=== PATIENT | female | born 1970 | race Caucasian/White ===

== ENCOUNTER 2020-07-26 13:35 | Inpatient (IN) | payer OTHER ==
[2020-07-26] MEDS ORDERED: SODIUM CHLORIDE 0.9% 500 ML INFUS.BAG IV ONE (13:56)
[2020-07-26] MEDS ORDERED: FAMOTIDINE 20 MG/50 ML IVPB 20 MG/50 ML MG IVPB ONE ×2 (13:56→15:38)
[2020-07-26] MEDS ORDERED: MAG HYDROX/AL HYDROX/SIMETH 30 ML UNIT-DOSE CUP PO ONE (13:56)
[2020-07-26] MEDS ORDERED: DEXAMETHASONE SOD PHOSPHATE 4 MG/1 ML VIAL IVPUSH ONE (14:38)
[2020-07-26 15:15] LABS: BASO % 0.1 % (0-2.0); HEMATOCRIT 36.6 % (32.4-45.2); HEMOGLOBIN 12.1 GM/dL (10.7-15.3); MCH 28.6 pg (25.7-33.7); MEAN CELL VOLUME 86.7 fl (80-96); MEAN PLT VOLUME 8.5 fl (7.5-11.1); MONO % 2.4 % (3.8-10.2); NEUT % 89.5 % (42.8-82.8); PLATELET COUNT 269 K/MM3 (134-434); RBC 4.22 M/mm3 (3.60-5.2); RDW 13.1 % (11.6-15.6); WHITE BLOOD COUNT 6.9 K/mm3 (4.0-10.0)
[2020-07-26 15:22] LABS: CHLORIDE 103 mmol/L (98-107); POTASSIUM 3.5 mmol/L (3.5-5.1)
[2020-07-26 15:25] LABS: ALBUMIN 3.4 g/dl (3.4-5.0); CALCIUM 8.4 mg/dL (8.5-10.1); CO2 26 mmol/L (21-32); GLUCOSE,RANDOM 120 mg/dL (74-106)
[2020-07-26 15:27] LABS: INR 1.18 (0.83-1.09); PROTHROMBIN TIME (PATIENT) 14.2 SEC (9.7-13.0)
[2020-07-26 15:28] LABS: BILIRUBIN,DIRECT 0.2 mg/dL (0.0-0.2); CREATININE 0.6 mg/dL (0.55-1.3); SGOT/AST 37 U/L (15-37); SGPT/ALT 31 U/L (13-61)
[2020-07-26 15:29] LABS: ACTIVATED PTT 31.5 SECONDS (25.2-36.5)
[2020-07-26 15:30] LABS: BILIRUBIN,TOTAL 0.7 mg/dL (0.2-1); TOT PROT 7.7 g/dl (6.4-8.2)
[2020-07-26 15:31] LABS: ALK PHOS 52 U/L (45-117)
[2020-07-26 15:33] LABS: LDH 334 U/L (84-246)
[2020-07-26] MEDS ORDERED: DEXAMETHASONE SOD PHOSPHATE 4 MG/1 ML VIAL ONE (15:37)
[2020-07-26] MEDS ORDERED: MAG HYDROX/AL HYDROX/SIMETH 30 ML UNIT-DOSE CUP ONE (15:38)
[2020-07-26 15:51] LABS: ANION GAP 6 MMOL/L (8-16); SODIUM 135 mmol/L (136-145)
[2020-07-26] MEDS ORDERED: IBUPROFEN 400 MG TABLET (FP) PO ONE ×2 (16:24→17:20)
[2020-07-26] MEDS ORDERED: AZITHROMYCIN IVPB 500 MG in DEXTROSE 5%-WATER - 250 ML IVPB ONE (16:30)
[2020-07-26] MEDS ORDERED: SODIUM CHLORIDE 1,000 ML IV SCH (16:30)
[2020-07-26] MEDS ORDERED: ALBUTEROL SO4 HFA INHALER IH PRN (16:33)
[2020-07-26] MEDS ORDERED: CEFTRIAXONE 1 GM/50 ML BAG ONE (17:21)
[2020-07-26] MEDS ORDERED: AZITHROMYCIN IVPB 500 MG/250 ML BAG IVPB ONE (17:21)
[2020-07-26] MEDS: CEFTRIAXONE 1 GM in DEXTROSE 5%-WATER - 50 ML IVPB SCH (17:35)
[2020-07-26 20:58] LABS: EPI CELLS 11 /uL (0-25.1); HYALINE CASTS 3 /uL (0-3.1); URINE APPEARANCE CLEAR; URINE BACTERIA 61 /uL (0-1359); URINE BILIRUBIN NEGATIVE (NEGATIVE); URINE COLOR YELLOW; URINE GLUCOSE (UA) 1+ (NEGATIVE); URINE KETONE 1+ (NEGATIVE); URINE LEUK ESTERASE NEGATIVE (NEGATIVE); URINE NITRITE NEGATIVE (NEGATIVE); URINE PROTEIN 1+ (NEGATIVE); URINE RBC 17 /uL (0-23.9); URINE UROBILINOGEN 0.2 mg/dL (0.2-1.0); URINE WBC 4 /uL (0-25.8)
[2020-07-26] MEDS ORDERED: ASCORBIC ACID 500 MG TABLET (FP) ONE (21:05)
[2020-07-26] MEDS ORDERED: ENOXAPARIN NA (PORCINE) 100 MG/1 ML DISP.SYRIN SQ ONE (21:06)
[2020-07-26] MEDS: ENOXAPARIN NA (PORCINE) 80 MG/0.8 ML DISP.SYRIN SQ SCH (21:12)
[2020-07-26] MEDS: ASCORBIC ACID 500 MG TABLET (FP) PO SCH (21:13)
[2020-07-26] MEDS ORDERED: guaiFENesin 200 MG/10 ML 10 ML UNIT-DOSE CUPS PO ONE (23:14)
[2020-07-26] MEDS ORDERED: MELATONIN 5 MG TABLETS PO ONE (23:15)
[2020-07-27] MEDS: ACETAMINOPHEN 325 MG TABLET (FP) PO PRN ×3 (01:34→23:00)
[2020-07-27 08:22] LABS: HEMATOCRIT 33.6 % (32.4-45.2); HEMOGLOBIN 11.1 GM/dL (10.7-15.3); LYMPH % 6.4 % (8-40); MCH 28.4 pg (25.7-33.7); MCHC 32.9 g/dl (32.0-36.0); MEAN CELL VOLUME 86.3 fl (80-96); MEAN PLT VOLUME 8.7 fl (7.5-11.1); MONO % 3.4 % (3.8-10.2); NEUT % 90.2 % (42.8-82.8); PLATELET COUNT 311 K/MM3 (134-434); RBC 3.89 M/mm3 (3.60-5.2); RDW 13.2 % (11.6-15.6); WHITE BLOOD COUNT 9.2 K/mm3 (4.0-10.0)
[2020-07-27 08:40] LABS: POTASSIUM 3.8 mmol/L (3.5-5.1)
[2020-07-27 08:42] LABS: BLOOD UREA NITROGEN 10.7 mg/dL (7-18); CALCIUM 8.5 mg/dL (8.5-10.1); MAGNESIUM 2.3 mg/dL (1.8-2.4)
[2020-07-27 08:44] LABS: ALBUMIN 3.1 g/dl (3.4-5.0)
[2020-07-27 08:46] LABS: BILIRUBIN,TOTAL 0.5 mg/dL (0.2-1); CREATININE 0.6 mg/dL (0.55-1.3); PHOSPHOROUS 1.7 mg/dL (2.5-4.9); TOT PROT 7.1 g/dl (6.4-8.2)
[2020-07-27] MEDS ORDERED: ENOXAPARIN NA (PORCINE) 40 MG/0.4 ML DISP.SYRIN SQ SCH (10:00)
[2020-07-27] MEDS ORDERED: cefTRIAXone SODIUM 1 GM VIAL ONE (10:08)
[2020-07-27] MEDS ORDERED: DEXTROSE 5%-WATER - 50 ML IVPB ONE (10:09)
[2020-07-27] MEDS ORDERED: PT OWN MED DRAWER 7, Y5N ONE ×2 (10:44→14:32)
[2020-07-27] MEDS: DEXAMETHASONE 4 MG TABLET (FP) PO SCH (10:53)
[2020-07-27] MEDS: CEFTRIAXONE 1 GM in DEXTROSE 5%-WATER - 50 ML IVPB SCH (10:53)
[2020-07-27] MEDS: ENOXAPARIN NA (PORCINE) 80 MG/0.8 ML DISP.SYRIN SQ SCH (10:53)
[2020-07-27] MEDS: ASCORBIC ACID 500 MG TABLET (FP) PO SCH ×2 (10:54→21:18)
[2020-07-27] MEDS: CHOLECALCIFEROL (VIT D3) 5000 UNITS (125 MCG) CAP PO SCH (12:16)
[2020-07-27] MEDS: AZITHROMYCIN IVPB 250 MG in DEXTROSE 5%-WATER - 250 ML IVPB SCH (12:46)
[2020-07-27] MEDS ORDERED: REMDESIVIR 200 MG in SODIUM CHLORIDE 210 ML IVPB ONE (13:00)
[2020-07-27] MEDS ORDERED: NAPH,MB-DB/K PH,MBDB POWDER PACKET PO ONE (13:30)
[2020-07-27] MEDS ORDERED: ACETAMINOPHEN/CAFFEINE/BUTALBITAL 1 TAB PO ONE (14:36)
[2020-07-28] MEDS: ACETAMINOPHEN 325 MG TABLET (FP) PO PRN ×2 (02:58→21:01)
[2020-07-28 08:39] LABS: BASO % 0.1 % (0-2.0); HEMATOCRIT 32.5 % (32.4-45.2); HEMOGLOBIN 10.7 GM/dL (10.7-15.3); LYMPH % 10.4 % (8-40); MCH 28.7 pg (25.7-33.7); MCHC 32.9 g/dl (32.0-36.0); MEAN CELL VOLUME 87.2 fl (80-96); MEAN PLT VOLUME 8.6 fl (7.5-11.1); MONO % 4.2 % (3.8-10.2); NEUT % 85.3 % (42.8-82.8); PLATELET COUNT 363 K/MM3 (134-434); RBC 3.73 M/mm3 (3.60-5.2); RDW 13.3 % (11.6-15.6); WHITE BLOOD COUNT 10.6 K/mm3 (4.0-10.0)
[2020-07-28 08:54] LABS: POTASSIUM 3.5 mmol/L (3.5-5.1)
[2020-07-28 08:59] LABS: BLOOD UREA NITROGEN 15.4 mg/dL (7-18); CALCIUM 8.2 mg/dL (8.5-10.1)
[2020-07-28 09:00] LABS: MAGNESIUM 2.3 mg/dL (1.8-2.4)
[2020-07-28 09:02] LABS: CREATININE 0.6 mg/dL (0.55-1.3)
[2020-07-28] MEDS ORDERED: DEXTROSE 5%-WATER - 50 ML IVPB ONE (09:02)
[2020-07-28] MEDS ORDERED: cefTRIAXone SODIUM 1 GM VIAL ONE (09:02)
[2020-07-28 09:04] LABS: BILIRUBIN,TOTAL 0.8 mg/dL (0.2-1); PHOSPHOROUS 2.9 mg/dL (2.5-4.9); TOT PROT 6.9 g/dl (6.4-8.2)
[2020-07-28] MEDS ORDERED: ENOXAPARIN NA (PORCINE) 40 MG/0.4 ML DISP.SYRIN SQ SCH (10:00)
[2020-07-28] MEDS: CEFTRIAXONE 1 GM in DEXTROSE 5%-WATER - 50 ML IVPB SCH (10:30)
[2020-07-28] MEDS: AZITHROMYCIN IVPB 250 MG in DEXTROSE 5%-WATER - 250 ML IVPB SCH (10:30)
[2020-07-28] MEDS: ASCORBIC ACID 500 MG TABLET (FP) PO SCH ×2 (10:31→21:01)
[2020-07-28] MEDS: CHOLECALCIFEROL (VIT D3) 5000 UNITS (125 MCG) CAP PO SCH (10:32)
[2020-07-28] MEDS: REMDESIVIR 100 MG in SODIUM CHLORIDE 230 ML IVPB SCH (13:09)
[2020-07-28] MEDS: DEXAMETHASONE 4 MG TABLET (FP) PO SCH ×2 (13:16→15:00)
[2020-07-28] MEDS ORDERED: ACETAMINOPHEN/CAFFEINE/BUTALBITAL 1 TAB PO ONE ×2 (14:29→22:09)
[2020-07-28] MEDS ORDERED: XIIDRA OD SCH (22:00)
[2020-07-28] MEDS ORDERED: EYE OS SCH (22:00)
[2020-07-28] MEDS ORDERED: ERYTHROMYCIN 0.5% OS SCH (22:00)
[2020-07-28] MEDS ORDERED: PREDNISOLONE ACETATE OS SCH (22:00)
[2020-07-29] MEDS ORDERED: MORPHINE SULFATE 2 MG/ML VIAL IVPUSH ONE (05:42)
[2020-07-29] MEDS: ENOXAPARIN NA (PORCINE) 60 MG/0.6 ML DISP.SYRIN SQ SCH ×2 (05:58→21:36)
[2020-07-29] MEDS ORDERED: cefTRIAXone SODIUM 1 GM VIAL ONE (08:15)
[2020-07-29] MEDS ORDERED: PT OWN MED DRAWER 7, Y5N ONE (08:15)
[2020-07-29] MEDS ORDERED: DEXTROSE 5%-WATER - 50 ML IVPB ONE (08:15)
[2020-07-29 08:57] LABS: HEMATOCRIT 33.7 % (32.4-45.2); HEMOGLOBIN 11.2 GM/dL (10.7-15.3); MCH 28.5 pg (25.7-33.7); MCHC 33.3 g/dl (32.0-36.0); MEAN CELL VOLUME 85.6 fl (80-96); PLATELET COUNT 442 K/MM3 (134-434); RBC 3.94 M/mm3 (3.60-5.2); RDW 13.2 % (11.6-15.6); WHITE BLOOD COUNT 9.5 K/mm3 (4.0-10.0)
[2020-07-29] MEDS: CHOLECALCIFEROL (VIT D3) 5000 UNITS (125 MCG) CAP PO SCH (09:04)
[2020-07-29] MEDS: DEXAMETHASONE 4 MG TABLET (FP) PO SCH (09:04)
[2020-07-29] MEDS: CEFTRIAXONE 1 GM in DEXTROSE 5%-WATER - 50 ML IVPB SCH (09:04)
[2020-07-29] MEDS: ASCORBIC ACID 500 MG TABLET (FP) PO SCH ×2 (09:04→21:37)
[2020-07-29 09:27] LABS: LDH 552 U/L (84-246)
[2020-07-29] MEDS: AZITHROMYCIN IVPB 250 MG in DEXTROSE 5%-WATER - 250 ML IVPB SCH (13:29)
[2020-07-29] MEDS: REMDESIVIR 100 MG in SODIUM CHLORIDE 230 ML IVPB SCH (15:27)
[2020-07-29] MEDS ORDERED: ACETAMINOPHEN 1000 MG/100 ML VIAL (NON FORMULARY) IVPB ONE (15:46)
[2020-07-29] MEDS: guaiFENesin 200 MG/10 ML 10 ML UNIT-DOSE CUPS PO PRN (17:04)
[2020-07-29] MEDS: BENZOCAINE/MENTH/CETYLPYRD CL 1 EACH LOZENGE MM PRN (17:05)
[2020-07-30] MEDS: guaiFENesin 200 MG/10 ML 10 ML UNIT-DOSE CUPS PO PRN ×3 (02:42→21:55)
[2020-07-30] MEDS ORDERED: DEXTROSE 5%-WATER - 50 ML IVPB ONE (08:56)
[2020-07-30] MEDS ORDERED: cefTRIAXone SODIUM 1 GM VIAL ONE (08:56)
[2020-07-30] MEDS: MORPHINE SULFATE 2 MG/ML VIAL IVPUSH PRN ×2 (08:59→16:46)
[2020-07-30] MEDS: ENOXAPARIN NA (PORCINE) 60 MG/0.6 ML DISP.SYRIN SQ SCH ×2 (08:59→21:05)
[2020-07-30 09:00] LABS: BASO % 0.1 % (0-2.0); EOS % 0.4 % (0-4.5); HEMATOCRIT 34.8 % (32.4-45.2); HEMOGLOBIN 11.4 GM/dL (10.7-15.3); LYMPH % 10.6 % (8-40); MCH 28.3 pg (25.7-33.7); MCHC 32.6 g/dl (32.0-36.0); MEAN CELL VOLUME 86.6 fl (80-96); MONO % 4.6 % (3.8-10.2); NEUT % 84.3 % (42.8-82.8); PLATELET COUNT 574 K/MM3 (134-434); RBC 4.03 M/mm3 (3.60-5.2); RDW 12.9 % (11.6-15.6); WHITE BLOOD COUNT 12.5 K/mm3 (4.0-10.0)
[2020-07-30] MEDS: ASCORBIC ACID 500 MG TABLET (FP) PO SCH ×2 (09:01→21:05)
[2020-07-30] MEDS: CEFTRIAXONE 1 GM in DEXTROSE 5%-WATER - 50 ML IVPB SCH (09:01)
[2020-07-30] MEDS: DEXAMETHASONE 4 MG TABLET (FP) PO SCH (09:02)
[2020-07-30] MEDS: AZITHROMYCIN IVPB 250 MG in DEXTROSE 5%-WATER - 250 ML IVPB SCH (09:02)
[2020-07-30] MEDS: BENZOCAINE/MENTH/CETYLPYRD CL 1 EACH LOZENGE MM PRN ×2 (09:02→16:48)
[2020-07-30 09:14] LABS: POTASSIUM 3.8 mmol/L (3.5-5.1)
[2020-07-30 09:22] LABS: ALBUMIN 3.1 g/dl (3.4-5.0); BLOOD UREA NITROGEN 24.2 mg/dL (7-18)
[2020-07-30 09:23] LABS: BILIRUBIN,TOTAL 0.8 mg/dL (0.2-1); CALCIUM 8.7 mg/dL (8.5-10.1); TOT PROT 7.1 g/dl (6.4-8.2)
[2020-07-30 09:25] LABS: CREATININE 0.6 mg/dL (0.55-1.3)
[2020-07-30] MEDS: CHOLECALCIFEROL (VIT D3) 5000 UNITS (125 MCG) CAP PO SCH (09:43)
[2020-07-30] MEDS: REMDESIVIR 100 MG in SODIUM CHLORIDE 230 ML IVPB SCH (13:45)
[2020-07-30] MEDS: ACETAMINOPHEN 325 MG TABLET (FP) PO PRN (19:28)
[2020-07-31] MEDS: MORPHINE SULFATE 2 MG/ML VIAL IVPUSH PRN ×3 (00:48→21:17)
[2020-07-31] MEDS: ACETAMINOPHEN 325 MG TABLET (FP) PO PRN ×3 (04:01→13:24)
[2020-07-31] MEDS ORDERED: PT OWN MED DRAWER 7, Y5N ONE (08:41)
[2020-07-31] MEDS: ENOXAPARIN NA (PORCINE) 60 MG/0.6 ML DISP.SYRIN SQ SCH ×3 (08:46→21:17)
[2020-07-31] MEDS: guaiFENesin 200 MG/10 ML 10 ML UNIT-DOSE CUPS PO PRN ×2 (08:47→21:19)
[2020-07-31] MEDS: DEXAMETHASONE 4 MG TABLET (FP) PO SCH ×2 (08:47→09:10)
[2020-07-31] MEDS: CHOLECALCIFEROL (VIT D3) 5000 UNITS (125 MCG) CAP PO SCH ×2 (08:47→09:10)
[2020-07-31] MEDS: ASCORBIC ACID 500 MG TABLET (FP) PO SCH ×3 (08:48→21:17)
[2020-07-31] MEDS: BENZOCAINE/MENTH/CETYLPYRD CL 1 EACH LOZENGE MM PRN ×2 (08:49)
[2020-07-31] MEDS: REMDESIVIR 100 MG in SODIUM CHLORIDE 230 ML IVPB SCH (13:24)
[2020-07-31 17:09] LABS: ARTERIAL BLD GAS O2 SATURATION 93.3 mmHg (95-98); ARTERIAL BLOOD GAS BASE EXCESS 1.6 mmol/L (-2-2); ARTERIAL BLOOD GAS PO2 64.3 mmHg (80-100); ARTERIAL BLOOD GAS pH 7.438 (7.350-7.450)
[2020-08-01] MEDS: ASCORBIC ACID 500 MG TABLET (FP) PO SCH ×2 (11:14→21:40)
[2020-08-01] MEDS: DEXAMETHASONE 4 MG TABLET (FP) PO SCH (11:14)
[2020-08-01] MEDS: CHOLECALCIFEROL (VIT D3) 5000 UNITS (125 MCG) CAP PO SCH (11:15)
[2020-08-01] MEDS: ENOXAPARIN NA (PORCINE) 60 MG/0.6 ML DISP.SYRIN SQ SCH ×2 (11:15→21:40)
[2020-08-01] MEDS ORDERED: TOCILIZUMAB (ACTEMRA) 200 MG/10 ML VIAL IVPB ONE (13:45)
[2020-08-01] MEDS ORDERED: TOCILIZUMAB 400 MG, TOCILIZUMAB 100 MG in SODIUM CHLORIDE 75 ML IVPB ONE (16:00)
[2020-08-01] MEDS: BENZOCAINE/MENTH/CETYLPYRD CL 1 EACH LOZENGE MM PRN (21:40)
[2020-08-02 09:12] LABS: BASO % 0.1 % (0-2.0); EOS % 2.6 % (0-4.5); HEMATOCRIT 33.8 % (32.4-45.2); HEMOGLOBIN 11.2 GM/dL (10.7-15.3); MCH 28.7 pg (25.7-33.7); MCHC 33.2 g/dl (32.0-36.0); MEAN CELL VOLUME 86.4 fl (80-96); MONO % 3.4 % (3.8-10.2); NEUT % 83.9 % (42.8-82.8); PLATELET COUNT 718 K/MM3 (134-434); RBC 3.92 M/mm3 (3.60-5.2); RDW 13.5 % (11.6-15.6); WHITE BLOOD COUNT 10.7 K/mm3 (4.0-10.0)
[2020-08-02 09:24] LABS: POTASSIUM 4.2 mmol/L (3.5-5.1)
[2020-08-02 09:32] LABS: ALBUMIN 3.1 g/dl (3.4-5.0); CALCIUM 9.2 mg/dL (8.5-10.1)
[2020-08-02 09:33] LABS: BLOOD UREA NITROGEN 31.7 mg/dL (7-18)
[2020-08-02 09:34] LABS: MAGNESIUM 2.6 mg/dL (1.8-2.4)
[2020-08-02 09:35] LABS: CREATININE 0.5 mg/dL (0.55-1.3); PHOSPHOROUS 3.7 mg/dL (2.5-4.9)
[2020-08-02 09:37] LABS: BILIRUBIN,TOTAL 1.7 mg/dL (0.2-1); TOT PROT 7.6 g/dl (6.4-8.2)
[2020-08-02] MEDS ORDERED: PT OWN MED DRAWER 7, Y5N ONE ×2 (10:53→11:32)
[2020-08-02] MEDS: DEXAMETHASONE 4 MG TABLET (FP) PO SCH (11:08)
[2020-08-02] MEDS: guaiFENesin 200 MG/10 ML 10 ML UNIT-DOSE CUPS PO PRN ×2 (11:09→22:25)
[2020-08-02] MEDS: ASCORBIC ACID 500 MG TABLET (FP) PO SCH ×2 (11:09→22:25)
[2020-08-02] MEDS: CHOLECALCIFEROL (VIT D3) 5000 UNITS (125 MCG) CAP PO SCH (11:09)
[2020-08-02] MEDS: ENOXAPARIN NA (PORCINE) 60 MG/0.6 ML DISP.SYRIN SQ SCH ×2 (11:09→22:24)
[2020-08-02] MEDS: BENZOCAINE/MENTH/CETYLPYRD CL 1 EACH LOZENGE MM PRN ×2 (11:10→22:25)
[2020-08-02] MEDS: DEXAMETHASONE SOD PHOSPHATE 4 MG/1 ML VIAL IVPUSH SCH (11:12)
[2020-08-02 11:38] LABS: ANISOCYTOSIS 0; MACROCYTOSIS 0; PLATELET ESTIMATE INCREASED
[2020-08-02] MEDS: BUDESONIDE/FORMETEROL FUMARATE 160/4.5 mcg INHALER IH SCH ×2 (13:25→22:26)
[2020-08-02] MEDS: ALBUTEROL SO4 HFA INHALER IH SCH ×3 (13:25→22:26)
[2020-08-02 16:52] VITALS: BMI 23.7
[2020-08-03] MEDS: ALBUTEROL SO4 HFA INHALER IH SCH ×4 (08:00→22:28)
[2020-08-03 09:53] LABS: BASO % 1.3 % (0-2.0); EOS % 3.1 % (0-4.5); HEMATOCRIT 32.6 % (32.4-45.2); HEMOGLOBIN 10.7 GM/dL (10.7-15.3); LYMPH % 12.4 % (8-40); MCH 28.6 pg (25.7-33.7); MCHC 32.8 g/dl (32.0-36.0); MEAN PLT VOLUME 8.2 fl (7.5-11.1); MONO % 5.6 % (3.8-10.2); NEUT % 77.6 % (42.8-82.8); PLATELET COUNT 637 K/MM3 (134-434); RBC 3.74 M/mm3 (3.60-5.2); RDW 13.3 % (11.6-15.6); WHITE BLOOD COUNT 9.8 K/mm3 (4.0-10.0)
[2020-08-03 10:13] LABS: POTASSIUM 4.2 mmol/L (3.5-5.1)
[2020-08-03 10:17] LABS: ALBUMIN 3.1 g/dl (3.4-5.0); MAGNESIUM 2.5 mg/dL (1.8-2.4)
[2020-08-03 10:20] LABS: CREATININE 0.5 mg/dL (0.55-1.3)
[2020-08-03 10:22] LABS: BILIRUBIN,TOTAL 0.7 mg/dL (0.2-1); TOT PROT 7.2 g/dl (6.4-8.2)
[2020-08-03 10:23] LABS: BLOOD UREA NITROGEN 28.9 mg/dL (7-18)
[2020-08-03 10:26] LABS: PHOSPHOROUS 3.8 mg/dL (2.5-4.9)
[2020-08-03] MEDS: BUDESONIDE/FORMETEROL FUMARATE 160/4.5 mcg INHALER IH SCH ×2 (10:27→22:28)
[2020-08-03] MEDS: DEXAMETHASONE SOD PHOSPHATE 4 MG/1 ML VIAL IVPUSH SCH (10:28)
[2020-08-03] MEDS: ASCORBIC ACID 500 MG TABLET (FP) PO SCH ×2 (10:28→22:28)
[2020-08-03] MEDS: CHOLECALCIFEROL (VIT D3) 5000 UNITS (125 MCG) CAP PO SCH (10:29)
[2020-08-03] MEDS: ENOXAPARIN NA (PORCINE) 60 MG/0.6 ML DISP.SYRIN SQ SCH ×2 (10:29→22:28)
[2020-08-03] MEDS: ACETAMINOPHEN 325 MG TABLET (FP) PO PRN (22:27)
[2020-08-03] MEDS: guaiFENesin 200 MG/10 ML 10 ML UNIT-DOSE CUPS PO PRN (22:29)
[2020-08-04] MEDS: guaiFENesin 200 MG/10 ML 10 ML UNIT-DOSE CUPS PO PRN (06:10)
[2020-08-04 09:18] LABS: BASO % 0.7 % (0-2.0); EOS % 1.4 % (0-4.5); HEMATOCRIT 34.3 % (32.4-45.2); HEMOGLOBIN 11.3 GM/dL (10.7-15.3); LYMPH % 15.5 % (8-40); MCH 28.4 pg (25.7-33.7); MEAN PLT VOLUME 7.8 fl (7.5-11.1); MONO % 5.5 % (3.8-10.2); NEUT % 76.9 % (42.8-82.8); PLATELET COUNT 666 K/MM3 (134-434); RBC 3.99 M/mm3 (3.60-5.2); RDW 13.4 % (11.6-15.6); WHITE BLOOD COUNT 9.4 K/mm3 (4.0-10.0)
[2020-08-04 09:43] LABS: POTASSIUM 3.9 mmol/L (3.5-5.1)
[2020-08-04 10:15] LABS: BILIRUBIN,TOTAL 1.2 mg/dL (0.2-1); TOT PROT 7.4 g/dl (6.4-8.2)
[2020-08-04 10:17] LABS: ALBUMIN 3.2 g/dl (3.4-5.0); BLOOD UREA NITROGEN 24.5 mg/dL (7-18)
[2020-08-04 10:18] LABS: CREATININE 0.5 mg/dL (0.55-1.3)
[2020-08-04 10:20] LABS: CALCIUM 9.3 mg/dL (8.5-10.1); PHOSPHOROUS 3.5 mg/dL (2.5-4.9)
[2020-08-04 10:21] LABS: MAGNESIUM 2.3 mg/dL (1.8-2.4)
[2020-08-04] MEDS: DEXAMETHASONE SOD PHOSPHATE 4 MG/1 ML VIAL IVPUSH SCH (10:23)
[2020-08-04] MEDS: ENOXAPARIN NA (PORCINE) 60 MG/0.6 ML DISP.SYRIN SQ SCH ×2 (10:24→21:40)
[2020-08-04] MEDS: ASCORBIC ACID 500 MG TABLET (FP) PO SCH ×2 (10:24→21:40)
[2020-08-04] MEDS: ALBUTEROL SO4 HFA INHALER IH SCH ×4 (10:28→21:40)
[2020-08-04] MEDS: BUDESONIDE/FORMETEROL FUMARATE 160/4.5 mcg INHALER IH SCH ×2 (10:29→21:40)
[2020-08-04] MEDS ORDERED: PT OWN MED DRAWER 7, Y5N ONE (10:46)
[2020-08-04] MEDS: CHOLECALCIFEROL (VIT D3) 5000 UNITS (125 MCG) CAP PO SCH (10:47)
[2020-08-05] MEDS: ACETAMINOPHEN 325 MG TABLET (FP) PO PRN (04:04)
[2020-08-05] MEDS ORDERED: PT OWN MED DRAWER 7, Y5N ONE (09:28)
[2020-08-05] MEDS: guaiFENesin 200 MG/10 ML 10 ML UNIT-DOSE CUPS PO PRN (09:47)
[2020-08-05] MEDS: ENOXAPARIN NA (PORCINE) 60 MG/0.6 ML DISP.SYRIN SQ SCH ×2 (09:47→21:29)
[2020-08-05] MEDS: CHOLECALCIFEROL (VIT D3) 5000 UNITS (125 MCG) CAP PO SCH (09:48)
[2020-08-05] MEDS: ASCORBIC ACID 500 MG TABLET (FP) PO SCH ×2 (09:48→21:29)
[2020-08-05] MEDS: DEXAMETHASONE SOD PHOSPHATE 4 MG/1 ML VIAL IVPUSH SCH (09:48)
[2020-08-05] MEDS: BUDESONIDE/FORMETEROL FUMARATE 160/4.5 mcg INHALER IH SCH ×2 (09:48→21:29)
[2020-08-05] MEDS: BENZOCAINE/MENTH/CETYLPYRD CL 1 EACH LOZENGE MM PRN (09:48)
[2020-08-05] MEDS: ALBUTEROL SO4 HFA INHALER IH SCH ×4 (09:48→21:29)
[2020-08-05] MEDS ORDERED: FAMOTIDINE 20 MG TABLET PO ONE (23:51)
[2020-08-06] MEDS: ACETAMINOPHEN 325 MG TABLET (FP) PO PRN ×2 (06:16→22:15)
[2020-08-06] MEDS ORDERED: BISACODYL 5 MG TABLET.DR (FP) PO PRN (10:00)
[2020-08-06 10:29] LABS: BASO % 0.7 % (0-2.0); EOS % 0.9 % (0-4.5); HEMOGLOBIN 11.6 GM/dL (10.7-15.3); LYMPH % 17.8 % (8-40); MCH 28.6 pg (25.7-33.7); MEAN CELL VOLUME 86.6 fl (80-96); MEAN PLT VOLUME 8.3 fl (7.5-11.1); MONO % 2.9 % (3.8-10.2); NEUT % 77.7 % (42.8-82.8); PLATELET COUNT 564 K/MM3 (134-434); RBC 4.04 M/mm3 (3.60-5.2); RDW 13.1 % (11.6-15.6); WHITE BLOOD COUNT 15.1 K/mm3 (4.0-10.0)
[2020-08-06] MEDS ORDERED: PT OWN MED DRAWER 7, Y5N ONE (10:54)
[2020-08-06] MEDS: CHOLECALCIFEROL (VIT D3) 5000 UNITS (125 MCG) CAP PO SCH (10:57)
[2020-08-06] MEDS: ASCORBIC ACID 500 MG TABLET (FP) PO SCH ×2 (10:57→22:15)
[2020-08-06] MEDS: DEXAMETHASONE SOD PHOSPHATE 4 MG/1 ML VIAL IVPUSH SCH (10:58)
[2020-08-06] MEDS: ENOXAPARIN NA (PORCINE) 40 MG/0.4 ML DISP.SYRIN SQ SCH (10:58)
[2020-08-06] MEDS: ALBUTEROL SO4 HFA INHALER IH SCH ×4 (10:58→22:16)
[2020-08-06] MEDS: BUDESONIDE/FORMETEROL FUMARATE 160/4.5 mcg INHALER IH SCH ×2 (10:59→22:16)
[2020-08-06 11:07] LABS: CHLORIDE 104 mmol/L (98-107); SODIUM 140 mmol/L (136-145)
[2020-08-06 11:24] LABS: ALBUMIN 3.4 g/dl (3.4-5.0); BLOOD UREA NITROGEN 21.6 mg/dL (7-18); CALCIUM 9.3 mg/dL (8.5-10.1); CO2 25 mmol/L (21-32); GLUCOSE,RANDOM 109 mg/dL (74-106)
[2020-08-06 11:27] LABS: CREATININE 0.6 mg/dL (0.55-1.3); SGPT/ALT 62 U/L (13-61)
[2020-08-06 11:28] LABS: SGOT/AST 32 U/L (15-37)
[2020-08-06 11:29] LABS: TOT PROT 7.2 g/dl (6.4-8.2)
[2020-08-06 11:30] LABS: ALK PHOS 47 U/L (45-117); BILIRUBIN,TOTAL 0.6 mg/dL (0.2-1)
[2020-08-06 11:35] LABS: ANION GAP 11 MMOL/L (8-16); POTASSIUM 3.7 mmol/L (3.5-5.1)
[2020-08-06] MEDS: guaiFENesin 200 MG/10 ML 10 ML UNIT-DOSE CUPS PO PRN (22:15)
[2020-08-07] MEDS: ACETAMINOPHEN 325 MG TABLET (FP) PO PRN ×2 (06:58→21:24)
[2020-08-07] MEDS: ALBUTEROL SO4 HFA INHALER IH SCH ×4 (08:37→21:25)
[2020-08-07] MEDS ORDERED: PT OWN MED DRAWER 7, Y5N ONE (09:36)
[2020-08-07] MEDS: ASCORBIC ACID 500 MG TABLET (FP) PO SCH ×2 (09:37→21:24)
[2020-08-07] MEDS: CHOLECALCIFEROL (VIT D3) 5000 UNITS (125 MCG) CAP PO SCH (09:37)
[2020-08-07] MEDS: ENOXAPARIN NA (PORCINE) 40 MG/0.4 ML DISP.SYRIN SQ SCH (09:37)
[2020-08-07] MEDS: BUDESONIDE/FORMETEROL FUMARATE 160/4.5 mcg INHALER IH SCH ×2 (09:38→21:25)
[2020-08-07] MEDS: DEXAMETHASONE SOD PHOSPHATE 4 MG/1 ML VIAL IVPUSH SCH (09:38)
[2020-08-07] MEDS ORDERED: MAG HYDROX/AL HYDROX/SIMETH 30 ML UNIT-DOSE CUP PO PRN (10:08)
[2020-08-07 10:18] LABS: BASO % 0.7 % (0-2.0); EOS % 0.3 % (0-4.5); HEMATOCRIT 34.8 % (32.4-45.2); HEMOGLOBIN 11.4 GM/dL (10.7-15.3); LYMPH % 13.1 % (8-40); MCH 28.3 pg (25.7-33.7); MCHC 32.6 g/dl (32.0-36.0); MEAN CELL VOLUME 86.7 fl (80-96); MEAN PLT VOLUME 8.3 fl (7.5-11.1); NEUT % 82.9 % (42.8-82.8); PLATELET COUNT 494 K/MM3 (134-434); RBC 4.02 M/mm3 (3.60-5.2); RDW 13.1 % (11.6-15.6); WHITE BLOOD COUNT 18.2 K/mm3 (4.0-10.0)
[2020-08-07 10:44] LABS: CHLORIDE 102 mmol/L (98-107); SODIUM 135 mmol/L (136-145)
[2020-08-07 10:52] LABS: CALCIUM 9.1 mg/dL (8.5-10.1); GLUCOSE,RANDOM 118 mg/dL (74-106)
[2020-08-07 10:53] LABS: ALBUMIN 3.4 g/dl (3.4-5.0); ANION GAP 7 MMOL/L (8-16); CO2 27 mmol/L (21-32)
[2020-08-07 10:55] LABS: CREATININE 0.6 mg/dL (0.55-1.3); SGOT/AST 27 U/L (15-37); SGPT/ALT 69 U/L (13-61)
[2020-08-07 10:57] LABS: ALK PHOS 44 U/L (45-117); BILIRUBIN,TOTAL 0.5 mg/dL (0.2-1); TOT PROT 7.1 g/dl (6.4-8.2)
[2020-08-07] MEDS: BENZOCAINE/MENTH/CETYLPYRD CL 1 EACH LOZENGE MM PRN (21:25)
[2020-08-07] MEDS: guaiFENesin 200 MG/10 ML 10 ML UNIT-DOSE CUPS PO PRN (21:25)
[2020-08-08 06:11] VITALS: PULSE 78
[2020-08-08] MEDS: ALBUTEROL SO4 HFA INHALER IH SCH ×2 (08:00→12:11)
[2020-08-08 08:31] LABS: BASO % 0.6 % (0-2.0); EOS % 0.3 % (0-4.5); HEMATOCRIT 34.3 % (32.4-45.2); HEMOGLOBIN 11.1 GM/dL (10.7-15.3); LYMPH % 12.2 % (8-40); MCH 28.2 pg (25.7-33.7); MCHC 32.4 g/dl (32.0-36.0); MEAN PLT VOLUME 8.8 fl (7.5-11.1); MONO % 4.7 % (3.8-10.2); NEUT % 82.2 % (42.8-82.8); PLATELET COUNT 452 K/MM3 (134-434); RBC 3.94 M/mm3 (3.60-5.2); RDW 13.2 % (11.6-15.6); WHITE BLOOD COUNT 19.1 K/mm3 (4.0-10.0)
[2020-08-08 09:04] LABS: CHLORIDE 102 mmol/L (98-107); POTASSIUM 4.2 mmol/L (3.5-5.1); SODIUM 136 mmol/L (136-145)
[2020-08-08 09:11] LABS: CALCIUM 9.1 mg/dL (8.5-10.1)
[2020-08-08 09:12] LABS: ALBUMIN 3.4 g/dl (3.4-5.0); ANION GAP 6 MMOL/L (8-16); CO2 29 mmol/L (21-32); GLUCOSE,RANDOM 80 mg/dL (74-106)
[2020-08-08 09:13] LABS: BILIRUBIN,TOTAL 0.5 mg/dL (0.2-1)
[2020-08-08 09:14] LABS: ALK PHOS 42 U/L (45-117); SGPT/ALT 93 U/L (13-61)
[2020-08-08 09:15] LABS: CREATININE 0.5 mg/dL (0.55-1.3); SGOT/AST 24 U/L (15-37)
[2020-08-08 09:16] LABS: TOT PROT 7.1 g/dl (6.4-8.2)
[2020-08-08] MEDS: CHOLECALCIFEROL (VIT D3) 5000 UNITS (125 MCG) CAP PO SCH (09:59)
[2020-08-08] MEDS: ENOXAPARIN NA (PORCINE) 40 MG/0.4 ML DISP.SYRIN SQ SCH (09:59)
[2020-08-08] MEDS: ASCORBIC ACID 500 MG TABLET (FP) PO SCH (09:59)
[2020-08-08] MEDS: BUDESONIDE/FORMETEROL FUMARATE 160/4.5 mcg INHALER IH SCH (10:00)
[2020-08-08] MEDS: ENOXAPARIN NA (PORCINE) 60 MG/0.6 ML DISP.SYRIN SQ SCH (10:31)
[2020-08-08 14:57] VITALS: BP 130/62; TEMP 98.2
== END 2020-08-08 16:29 | disposition home or self-care (01) | DRG 137 ==
LOC: JER 13:35 → JERBED 17:48 → J8W 22:27
PROVIDERS: ATTEND Internal Medicine
PROC: XW033E5 Introduction of Remdesivir Anti-infective into Peripheral Vein, Percutaneous Approach, New Technology Group 5 (ICD-10-PCS; principal; 2020-07-27)
PROC: XW13325 Transfusion of Convalescent Plasma (Nonautologous) into Peripheral Vein, Percutaneous Approach, New Technology Group 5 (ICD-10-PCS; 2020-07-27)
DX: U07.1 COVID-19 (principal); J12.82 Pneumonia due to coronavirus disease 2019; J96.01 Acute respiratory failure with hypoxia; R43.9 Unspecified disturbances of smell and taste; M62.82 Rhabdomyolysis; E83.39 Other disorders of phosphorus metabolism; R00.0 Tachycardia, unspecified; D25.9 Leiomyoma of uterus, unspecified; H54.40 Blindness, one eye, unspecified eye; M62.58 Muscle wasting and atrophy, not elsewhere classified, other site
CPT/HCPCS: 36415; 36430; 36600; 71045-TC-FY; 80053; 81003; 82140; 82248; 82550; 82553; 82728; 82803; 83605; 83615; 83690; 83735; 84100; 84484; 84703; 85025; 85027; 85379; 85610; 85730; 86140; 86850; 86900; 86901; 87040; 87086; 87804; 87807; 93005; 93010; 93970-TC; 94761; 99291; C9399; C9803; J0131; J3262; P9017; U0003

== ENCOUNTER 2020-08-23 02:53 | Emergency (ER) | payer OTHER ==
[2020-08-23] MEDS ORDERED: SODIUM CHLORIDE 0.9% 500 ML INFUS.BAG IV ONE (03:33)
[2020-08-23 03:34] VITALS: TEMP 98.3; BMI 23.4
[2020-08-23 03:58] LABS: BASO % 0.8 % (0-2.0); EOS % 2.6 % (0-4.5); HEMATOCRIT 35.1 % (32.4-45.2); HEMOGLOBIN 11.8 GM/dL (10.7-15.3); LYMPH % 16.3 % (8-40); MCH 29.8 pg (25.7-33.7); MCHC 33.5 g/dl (32.0-36.0); MEAN PLT VOLUME 9.1 fl (7.5-11.1); MONO % 5.5 % (3.8-10.2); NEUT % 74.8 % (42.8-82.8); PLATELET COUNT 151 K/MM3 (134-434); RBC 3.94 M/mm3 (3.60-5.2); RDW 17.1 % (11.6-15.6); WHITE BLOOD COUNT 11.2 K/mm3 (4.0-10.0)
[2020-08-23] MEDS ORDERED: LORazepam 1 MG TABLET PO ONE ×2 (04:06→06:17)
[2020-08-23 04:13] LABS: CHLORIDE 104 mmol/L (98-107); POTASSIUM 3.7 mmol/L (3.5-5.1); SODIUM 137 mmol/L (136-145)
[2020-08-23 04:14] LABS: CALCIUM 9.3 mg/dL (8.5-10.1)
[2020-08-23 04:15] LABS: ANION GAP 8 MMOL/L (8-16); BLOOD UREA NITROGEN 14.9 mg/dL (7-18); CO2 26 mmol/L (21-32); GLUCOSE,RANDOM 169 mg/dL (74-106)
[2020-08-23 04:18] LABS: CREATININE 0.8 mg/dL (0.55-1.3)
[2020-08-23] MEDS ORDERED: LORazepam 0.5 MG TABLET ONE (04:37)
[2020-08-23 06:32] VITALS: BP 135/80; PULSE 104
[2020-08-23 06:49] LABS: PLATELET ESTIMATE DECREASED
== END 2020-08-23 06:32 | disposition home or self-care (01) ==
LOC: JER 02:53
DX: F41.0 Panic disorder [episodic paroxysmal anxiety] (principal)
CPT/HCPCS: 36415; 71045-TC-FY; 80048; 84484; 84703; 85025; 85379; 93005; 93010; 99285-25